=== PATIENT | male | born 1995 | race African-American/Black ===

== ENCOUNTER 2019-06-02 17:29 | Emergency (ER) | payer OTHER, SELFPAY ==
--- NOTE | 2019-06-02 18:12 | RAD ---
XR Shoulder Rt 3 View STANDARD: 06/02/2019 5:57 PM CLINICAL INDICATION: History of shoulder trauma. COMPARISON: None. FINDINGS: Bones: No acute fracture. Glenohumeral joint: Normal alignment. AC joint: Normal alignment. Visualized lung: Clear. Soft tissues: Within normal limits. IMPRESSION: No acute osseous abnormality.
[2019-06-02] MEDS ORDERED: Ibuprofen 800 MG TAB ONE (18:48)
[2019-06-02] MEDS ORDERED: Cyclobenzaprine 10 MG TAB ONE (18:48)
== END 2019-06-02 18:52 | disposition home or self-care (01) ==
LOC: MADERS 17:29
DX: S43.401A Unspecified sprain of right shoulder joint, initial encounter (principal); B20 Human immunodeficiency virus [HIV] disease; F17.210 Nicotine dependence, cigarettes, uncomplicated; W11.XXXA Fall on and from ladder, initial encounter; Y92.009 Unspecified place in unspecified non-institutional (private) residence as the place of occurrence of the external cause

== ENCOUNTER 2019-07-16 22:19 | Emergency (ER) | payer SELFPAY | END 2019-07-16 23:35 | disposition home or self-care (01) | LOC: MADERS 22:19 | DX: F41.9 Anxiety disorder, unspecified (principal); F17.210 Nicotine dependence, cigarettes, uncomplicated | CPT/HCPCS: 99283 ==